=== PATIENT | male | born 1980 | race African-American/Black ===

== ENCOUNTER 2023-05-16 09:18 | Outpatient (OUT) | payer MEDICAID, SELFPAY ==
[2023-05-16 10:01] LABS: Basophils Percent Auto 0.5 % (0.2-2.0); Eosinophils Absolute Auto 0.1 10^3/uL (0.0-0.7); Eosinophils Percent Auto 2.3 % (0.9-7.0); Hematocrit 41.7 % (42.0-54.0); Hemoglobin 13.2 g/dL (14.0-18.0); Immature Granulocytes Abs Auto 0.03 10^3/uL (0.00-0.03); Immature Granulocytes Pct Auto 0.5 % (0.0-0.5); Lymphocytes Absolute Auto 2.2 10^3/uL (1.2-3.8); Lymphocytes Percent Auto 35.7 % (20.5-60.0); Mean Corpuscular HGB Conc 31.7 g/dL (29.9-35.2); Mean Corpuscular Hemoglobin 26.8 pg (25.9-34.0); Mean Corpuscular Volume 84.6 fL (80.0-94.0); Mean Platelet Volume 9.4 fL (9.5-13.5); Monocytes Absolute Auto 0.4 10^3/uL (0.3-0.8); Monocytes Percent Auto 6.6 % (1.7-12.0); Neutrophils Absolute Auto 3.4 10^3/uL (1.4-6.5); Neutrophils Percent Auto 54.4 % (43.0-75.0); Platelet Count 339 10^3/uL (150-450); Red Blood Count 4.93 10^6/uL (4.70-6.10); Red Cell Distribution Width 13.2 % (11.0-15.0); White Blood Count 6.2 10^3/uL (4.0-11.0)
[2023-05-16 10:41] LABS: Alanine Aminotransferase 18 U/L (16-63); Aspartate Amino Transferase 10 U/L (15-37)
== END 2023-05-16 09:19 | disposition home or self-care (01) ==
LOC: LAB 09:24
DX: B35.1 Tinea unguium (principal)
CPT/HCPCS: 36415; 84450; 84460; 85025

== ENCOUNTER 2023-12-14 08:45 | Outpatient (OUT) | payer OTHER, SELFPAY ==
[2023-12-14 09:03] LABS: Basophils Percent Auto 0.6 % (0.2-2.0); Eosinophils Absolute Auto 0.1 10^3/uL (0.0-0.7); Eosinophils Percent Auto 1.1 % (0.9-7.0); Hematocrit 43.1 % (42.0-54.0); Hemoglobin 13.9 g/dL (14.0-18.0); Immature Granulocytes Abs Auto 0.02 10^3/uL (0.00-0.03); Immature Granulocytes Pct Auto 0.3 % (0.0-0.5); Lymphocytes Absolute Auto 1.9 10^3/uL (1.2-3.8); Lymphocytes Percent Auto 27.4 % (20.5-60.0); Mean Corpuscular HGB Conc 32.3 g/dL (29.9-35.2); Mean Corpuscular Hemoglobin 27.2 pg (25.9-34.0); Mean Corpuscular Volume 84.3 fL (80.0-94.0); Monocytes Absolute Auto 0.6 10^3/uL (0.3-0.8); Monocytes Percent Auto 8.7 % (1.7-12.0); Neutrophils Absolute Auto 4.3 10^3/uL (1.4-6.5); Neutrophils Percent Auto 61.9 % (43.0-75.0); Platelet Count 308 10^3/uL (150-450); Red Blood Count 5.11 10^6/uL (4.70-6.10)
[2023-12-14 09:55] LABS: Estimated Average Glucose 103 mg/dL; Glycohemoglobin A1C 5.2 % (4.5-6.2)
[2023-12-14 10:10] LABS: Alanine Aminotransferase 33 U/L (16-63); Albumin Level 3.9 g/dL (3.4-5.0); Alkaline Phosphatase 61 U/L (46-116); Anion Gap 12.9; Aspartate Amino Transferase 19 U/L (15-37); BUN Creatinine Ratio 11.3; Bilirubin Total 1.3 mg/dL (0.2-1.0); Calcium 9.1 mg/dL (8.5-10.1); Carbon Dioxide 26.4 mmol/L (21.0-32.0); Chloride 104 mmol/L (98-107); Chol HDL Ratio 2.6; Cholesterol 216 mg/dL (<=200); Estimated GFR (African America >60 (>=60 mL/min/1.73m^2); Estimated GFR (Non-African Ame >60 (>=60 mL/min/1.73m^2); Free T3 3.31 pg/mL (2.18-3.98); Globulin 3.8 g/dL; Glucose 108 mg/dL (74-106); HDL Cholesterol 84 mg/dL (40-60); Potassium 4.3 mmol/L (3.5-5.1); Sodium 139 mmol/L (136-145); Thyroid Stimulating Hormone 0.901 uIU/mL (0.358-3.740); Total Protein 7.7 g/dL (6.4-8.2); Triglycerides 132 mg/dL (<=150); Uric Acid 6.2 mg/dL (3.5-7.2); VLDL CHOLESTEROL 26.4 mg/dL
[2023-12-14 10:21] LABS: Prostate Specific Antigen Scrn 0.67 ng/mL (<=4.00)
[2023-12-14 16:20] LABS: Internal Control Within Normal Limits; Occult Blood Negative
[2023-12-15 09:12] LABS: Insulin 10.3 uIU/mL (2.6-24.9)
== END 2023-12-14 08:46 | disposition home or self-care (01) ==
LOC: LAB 08:47
PROVIDERS: PCP Nurse Practitioner Family; Visit Provider Nurse Practitioner Family
DX: Z00.00 Encounter for general adult medical examination without abnormal findings (principal)
CPT/HCPCS: 36415; 80053; 80061; 83036; 83525; 84436; 84443; 84481; 84550; 85025; G0103; G0328

== ENCOUNTER 2024-10-16 21:03 | Emergency (ER) | payer OTHER, SELFPAY ==
[2024-10-16 21:08] VITALS: BP 134/76; PULSE 88; TEMP 37.2; O2SAT 99; BMI 23.0
--- OUTSIDE RECORDS SUMMARY | 2024-10-16 21:09 | XMS_ITS | CCD ---
Author Organization [facility] Care Team Providers Care Lunch Truck Operator Name Role Phone Unavailable Primary Care Provider UnavailGALE Bowers Attending Unavailable SELF Referring Unavailable SELF Referring Unavailable RAMSEY GLEASON Primary Care Physician [phone] RAMSEY GLAESON Attending Unavailable RAMSEY GLEASON Attending Unavailable RAMSEY GLEASON Admitting Unavailable Allergies Allergy Classification Reported Allergen(s) Allergy Type Date of Onset Reaction(s) Facility (1 source) No Known Medication Allergies; Translations: [No Known Medication Allergies] Propensity to adverse reactions (disorder) [facility] Repository Medications Current Medications Medication Drug Class(es) Dates Sig (Normalized) Sig (Original) 24 hr buPROPion hydrochloride 150 mg extended release oral tablet (1 source) Aminoketone Start: 12-15-2023 doxycycline monohydrate 100 mg oral capsule (1 source) Tetracycline-class Drug Start: 04-24-2024 doxycycline monohydrate 100 mg oral capsule 14 EA, 0 Refill(s), TAKE ONE CAPSULE BY MOUTH TWICE A DAY FOR 7 DAYS, Refills(s) 0 Start Date: 04/24/24 Status: Ordered Completed/Discontinued Medications Medication Drug Class(es) Dates Sig (Normalized) Sig (Original) meloxicam 7.5 mg oral tablet (2 sources) Nonsteroidal Anti-inflammatory Drug Start: 04-24-2024 meloxicam 7.5 mg Tab 30 EA, 0 Refill(s), TAKE 1 TABLET BY MOUTH ONCE DAILY., Refills(s) 0 Start Date: 04/24/24 Status: Ordered Start: 04-04-2024 take 1 tablet by scot th once daily meloxicam (MOBIC) 7.5 mg tablet Take 1 tablet by mouth once daily. 30 tablet 04/04/2024 Active Problems Problem Classification Problem Date Documented Da te Episodic/Chronic Other connective tissue disease (1 source) Tendonitis of left wrist; Translations: [Other enthesopathies, not elsewhere classified] 04-04-2024 Episodic Residual codes; unclassified (2 sources) Pain; Translations: [Pain, unspecified] 04-04-2024 Episodic Residual codes; unclassified (1 source) Pain, unspecified; Translations: [Pain] Onset: 04-04-2024 Episodic Residual codes; unclassified (1 source) Tobacco user 04-24-2024 Episodic Results Test Name Value Interpretation Reference Range Facility Reminderson 05-17-2024 Reminders Reminders - From: Lilliam Wiley LPN To: Jony - Clinical; Sent: 12/16/2023 14:28:39 EDT Show up: 05/11/2024 07:00:00 EDT Subject: colonoscopy recall Due Date/Time: 05/31/2024 07:00:00 EDT Reminder/Recall Patient due for screening colonoscopy 05/2024. (referral received 11/2023) - From: Lilliam Wiley LPN (N - Clinical) To: - Drafting Supervisor; Sent: 05/11/2024 09:13:56 EDT Show up: 05/11/2024 09:13:00 EDT Subject: RE: colonoscopy recall Left voice mail message to call to schedule consultation. Per notes, patient will call after his birthday in May and will schedule then. mxs Normal [facility] Chlamydia/Gonococcus, NAAon 04-27-2024 C. trachomatis rRNA LEO+probe Ql (Unsp spec) Negative Invalid Interpretation Code Negative [facility] Comment on above: Performed By: #### 1 [id number] #### [facility] [address] [place] [address] N. gonorrhoeae rRNA LEO+probe Ql (Unsp spec) Negative Invalid Interpretation Code Negative [facility] Comment on above: Result Comment: Perf ormed at: =[facility] [id number] MD Srini Key Performed By: #### 1 [id number] #### [facility] [address] [place] [address] HSV I and II IgGon HSV 1 IgG IA Ql Non-Reactive Invalid Interpretation Code Non Reactive [facility] Comment on above: Result Comment: Pl ease note reference interval change HSV-1 IgG testing performed using the [employer] HSV-1 IgG assay. Performed By: #### 1 [id number] #### [facility] [address] [place] [address] HSV 2 IgG IA Ql Reactive Abnormal Non Reactive [facility] Comment on above: Result Comment: Pl ease note reference interval change Current guidelines and recommendations do not recommend routine screening for HSV-2 in asymptomatic individuals, including those that are . The detection of HSV-2 IgG antibodies in a single sample indicates previous exposure to HSV-2 but does not give information as to the site of HSV infection or the timing of exposure. The predictive value of positive and negative results depends on the population's prevalence and the pretest likelihood of HSV-2. HSV-2 IgG testing performed using the [employer] Elecs[employer] HSV-2 IgG assay. Performed at: [facility] [id number] PhD Luigi Richards Performed By: #### 1 [id number] #### [facility] [address] [place] [address] Family Medicine Office/Clini c Noteon 04-24-2024 Family Medicine Office/Clinic Note Family Medicine Office/Clinic Note Chief Complaint patient in for [facility] wellness to establish care and would also like to have STI screening The patient presents for a general wellness checkup and request for STD screening. History of Present Illness 43-year-old male presenting to establish care with this provider scheduled adult wellness visit and requests STD screening due to ongoing sexual activity and absence of recent screening. He maintains an essentially monogamous relationship for 13 months, reports no STI symptoms, but expresses concern over prior possible exposure. He references a chiropractic neurologist's advice on a partner???s past chlamydial traces, although ascertains that he remains asymptomatic. Encounter with [facility] led to his last prescription without STI assessments. The patient reports a blister incident without a pattern of recurrence. He plans to undergo pertinent urine and blood work screenings for STIs, including chlamydia, and gonorrhea. Prior medical history includes the use of anti-inflammatory medication, likely meloxicam, for wrist inflammation, continuing presently without adjustment. Review of Systems PHQ Score Initial Depression Screen Score: 0 SCORE - Genitourinary: Denies current symptoms of sexually transmitted infections. - Integumentary: Reports past occurrence of blister, no current lesions. Physical Exam Vitals & Measurements T: 37.1 ???C(Temporal Artery) HR: 78(Peripheral) RR: 20 BP: 128/84 HT: 71 in HT: 180.2 cm WT: 72.8 kg WT: 160.496 lb BMI: 22.42 General: alert, no acute distress Skin: warm, dry Head: no trauma, normocephalic Neck: Trachea midline, no adenopathy, no tenderness Eye: normal conjunctiva, sclera clear ENMT: TM's clear, oral mucosa moist, no pharyngeal erythema or exudate Cardiovascular: regular rate and rhythm, normal peripheral perfusion Respiratory: Lungs CTA, respirations non labored Chest wall: no deformity. Gastrointestinal: soft, non distended, no tenderness, no guarding. Back: No tenderness, Normal ROM, Normal alignment. Extremities: no deformity, no trauma Neurological: oriented x 4, LOC appropriate for age, CN II-XII intact, motor strength equal & normal bilaterally, sensation equal & normal bilaterally, speech normal Psychiatric: cooperative, affect appropriate for age, normal judgement, normal psychiatric thoughts. Assessment/Plan 1. Adult wellness visit (Z00.00: Encounter for general adult medical examination without abnormal findings) The patient initiated this visit for routine health maintenance. Ongoing optimal wellness strategies are advised without adjustment, as no negative findings are apparent. 2. STD (male) (A64: Unspecified sexually transmitted disease) Diagnostic testing for STDs, including chlamydia, gonorrhea, herpes, and herpes is planned. Information sharing targeted towards STD prevention and symptoms awareness is crucial. Follow-up to discuss lab results is essential. Awaiting laboratory test results Ordered: Chlamydia/Gonococcus , LEO HSV I and II IgG 3. Encounter to establish care with new provider (Z76.89: Persons encountering health services in other specified circumstances) The patient integrates care following his move, promoting continuity of healthcare provisions. Examining previous management aids prospective planning for health maintenance and diagnostic monitoring. Follow-up With When Contact Information RAMSEY GLEASON CNP, FAM Within 1 year [address] [place] [address] Business (1) Additional Instructions: Well adult Patient Education Health Maintenance, Male Problem List/Past Medical History Ongoing No qualifying data Historical No qualifying data Medications doxycycline monohydrate 100 mg oral capsule meloxicam 7.5 mg Tab Wellbutrin XL 150 mg/24 hours Tab-ER Allergies No Known Allergies No Known Medication Allergies Social History Alcohol Current. Beer. 1-2 times per week., 04/24/2024 Substance Abuse Never., 04/24/2024 Tobacco 5-9 cigarettes (between 1/4 to 1/2 pack)/day in last 30 days Tobacco Use:., 04/24/2024 Family History Diabetes mellitus type 2: Mother and Grandparent. Immunizations Vaccine Date Status Comments influenza virus vaccine, inactivated - Not Given Patient Refuses Normal [facility] Comment on above: Result Comment: Elec tronically Signed By: RAMSEY GLEASON CNP\.br\Date and Time Signed: 04/24/24 09:02 EST Prashant 04-04-2024 CNOV Office Visit (LOORRM) IVYKEATON ([id number]) 1980 M Date Time Provider Department 04/04/24 10:00 AM GALE RAM LOORRM During your visit today, we recorded the following information about you: Gale Ram DO 04/04/2024 8:25 PM Signed Keaton Ivy is a patient of No primary care provider on file.. CHIEF COMPLAINT: Keaton Ivy is a 43 year old male who presents today for new evaluation ofleft wrist pain. HISTORY OF PRESENT ILLNESS: PAIN EVALUATION 04/04/2024 0923 Pain Level: 2 Pain Location: Wrist-Left Description: Numbness;Tingling Duration Amount of Time: 2 Duration Units: Months Frequency: Continuous Injury: about 2 months ago, jammed his wrist Mechanical Symptoms: No, patient denies locking, popping, or catching He localizes pain to the ulnar wrist. He notes that this problem exhibits aggravating factors of certain motions, activities. He notes that this problem exhibits alleviating factors of Rest and avoidance of aggravating activities. PHYSICAL EXAMINATION: HANDANDWRIST EXAM Inspection: No joint deformities or swelling noted on examination today Range of Motion: Finger: normal ROM of all joints of all fingers of both hands Wrist Flexion: normal ROM when compared to the contralateral side Wist Extension: normal ROM when compared to the contralateral side Muscle Strength: Wrist extension (C6): 5/5 Wrist flexion (C7): 5/5 TTP over the ulnar wrist, ECU No ECU subluxation or weakness IMAGING: Final results and radiologist's interpretation, available in the [facility] health record. Images were reviewed with the patient/family members in the office today. My personal interpretation of the performed imaging is no acute abnormality. CLINICAL IMPRESSION / ASSESSMENT: (M77.8) Left wrist tendinitis (primary encounter diagnosis) RECOMMENDATION / PLAN: Discussed the risk and benefits of general NSAIDs, as well as side effect profile, and will begin trial of Mobic. We will continue to monitor the need for further usage, and/or need for discontinuation. Activities as tolerated Compression, icing as needed Follow-up as needed Procedures Verbal health education was given to patient. Patient verbalizes understanding and agrees with the treatment plan as detailed above. Gale Ram DO Referring Provider: SELF [200] Allergies As of Date: 04/04/2024 (Not on File) Date Reviewed: 04/04/2024 Reviewed by: Gale Ram DO - Fully Assessed Reason for Visit: New [640924] Wrist Pain [1580] Primary Visit Diagnosis:Left wrist tendinitis [M77.8] Order(s):meloxicam (MOBIC) 7.5 mg tabletTake 1 tablet by mouth once daily.Disp: 30 tabletRfl: 0 Prescriptions as of 04/04/2024 - meloxicam (MOBIC) 7.5 mg tablet Take 1 tablet by mouth once daily. Problem List As Of Date: 04/04/2024 (None) Prescriptions ordered this encounter Disp Refills Start End MELOXICAM 7.5 MG TABLET 30 t* 0 04/04/2024 Route: ORAL Sig: Take 1 tablet by mouth once daily. Encounter Status:Closed by GALE RAM on 04/04/24 Normal [facility] XR WRIST 3V PA/LAT/OBL LTon 04-04-2024 XR WRIST 3V PA/LAT/OBL LT * * *Final Report* * * DATE OF EXAM: Apr 04 2024 9:13AM LZX 5270 - XR WRIST 3V PA/LAT/OBL LT / PROCEDURE REASON: Pain * * * * Physician Interpretation * * * * EXAMINATION: XR WRIST 3V PA/LAT/OBL LT HISTORY: pain lt wrist Pain . TECHNIQUE: XR WRIST 3V PA/LAT/OBL LT Laterality: LEFT Number of different views (projections): 3 M: XB_1 COMPARISON: RESULT: Moderate triscaphe degenerative changes. Carpal rows appear otherwise maintained. No acute fracture or dislocation. There are no bony erosions. IMPRESSION: Moderate triscaphe degenerative change. Bottom Liquor Attendant: KAY Transcribe Date/Time: Apr 04 2024 10:01A Dictated by : KOKO PAT MD This examination was interpreted and the report reviewed and electronically signed by: KOKO PAT MD on Apr 04 2024 10:01AM EST [id number] Normal [facility] XR Wrist - left PA and Later al and Obliqueon 04-04-2024 IMPRESSION: Moderate triscaphe degenerative change. Bottom Liquor Attendant: KAY Transcribe Date/Time: Apr 04 2024 10:01A Dictated by : KOKO PAT MD This examination was interpreted and the report reviewed and electronically signed by: KOKO PAT MD on Apr 04 2024 10:01AM EST DIVISION OF RADIOLOGY * * *Final Report* * * DATE OF EXAM: Apr 04 2024 9:13AM LZX 5270 - XR WRIST 3V PA/LAT/OBL LT / PROCEDURE REASON: Pain * * * * Physician Interpretation * * * * EXAMINATION: XR WRIST 3V PA/LAT/OBL LT HISTORY: pain lt wrist Pain . TECHNIQUE: XR WRIST 3V PA/LAT/OBL LT Laterality: LEFT Number of different views (projections): 3 M: XB_1 COMPARISON: RESULT: Moderate triscaphe degenerative changes. Carpal rows appear otherwise maintained. No acute fracture or dislocation. There are no bony erosions. DIVISION OF RADIOLOGY Provider, [facility] [place] - 04/04/2024 * * *Final Report* * * DATE OF EXAM: Apr 04 2024 9:13AM LZX 5270 - XR WRIST 3V PA/LAT/OBL LT / PROCEDURE REASON: Pain * * * * Physician Interpretation * * * * EXAMINATION: XR WRIST 3V PA/LAT/OBL LT HISTORY: pain lt wrist Pain . TECHNIQUE: XR WRIST 3V PA/LAT/OBL LT Laterality: LEFT Number of different views (projections): 3 M: XB_1 COMPARISON: RESULT: Moderate triscaphe degenerative changes. Carpal rows appear otherwise maintained. No acute fracture or dislocation. There are no bony erosions. IMPRESSION IMPRESSION: Moderate triscaphe degenerative change. Bottom Liquor Attendant[facility] Transcribe Date/Time: Apr 04 2024 10:01A Dictated by : KOKO PAT MD This examination was interpreted and the report reviewed and electronically signed by: KOKO PAT MD on Apr 04 2024 10:01AM EST [facility] Radiology Study observation (narrative) [facility] XR Wrist - left PA and Later al and ObliqueOrdered By: Ccf Provider on 04-04-2024 [facility] Encounters Encounter Date Encounter Type Care Provider Facility Start: 04-24-2024 End: 04-24-2024 Lab Drop off RAMSEY GLEASON [facility] Start: 04-24-2024 End: 04-24-2024 ambulatory RAMSEY GLEASON Facility[facility] Start: 04-23-2024 ambulatory RAMSEY GLEASON Facility :[facility] Jose Ramon Start: 04-04-2024 End: 04-04-2024 Patient encounter procedure Consuelo Vincent RT(R) Radiology Comment on above: Left wrist tendiniti s (Primary Dx) Start: 04-04-2024 End: 04-04-2024 ambulatory Consuelo Vincent RT(R) Radiology Comment on above: Radiology XR Start: 04-04-2024 End: 04-04-2024 Subsequent hospital visit by physician Kristina Torres 1 Work Phone: Radiology Comment on above: Pain [R52] Start: 12-16-2023 ambulatory RAMSEY GELASON Facility :[facility] Procedures Date Procedure Procedure Detail Performing Clinician Start: 04-04-2024 Radex wrist complete minimum 3 views Gale Espinozael DO Work Phone: Plan of Treatment Date Care Activity Detail Author Start: 10-23-2023 Covid-19 Vaccine ( season) Covid-19 Vaccine ( season) [facility] Start: 10-23-2023 Influenza vaccination Influenza Vacc ine (#1) [facility] Start: 05-31-2014 Lipid panel Lipid Screening [facility] Start: 05-31-1998 Hepatitis B Vaccine (1 of 3 - 19+ 3-dose series) Hepatitis B Vaccine (1 of 3 - 19+ 3-dose series) [facility] Start: 05-31-1998 Urine microalbumin profile DTa P,Tdap,Td Vaccine (1 - Tdap) [facility] Start: 05-31-1997 Anxiety Screening Anxiety Screening [facility] Start: 05-31-1997 Depression Screening Depression Scre ening [facility] Start: 05-31-1997 Hepatitis C screening Hepatitis C Sc reening [facility] Start: 05-31-1997 HIV screening HIV Screening [facility] Immunizations Immunization Date Immunization Notes Care Provider Fa cility NEGATED: Highlighted row has not occurred!04-24-2024 influenza virus vaccine, unspecified formulation RAMSEY GLEASON [facility] [place] Payers Date Payer Category Payer Private Health Insurance [facility] [employer] [id number] 2024 Unknown [id number] 1980 Unknown [id number] 1980 Unknown [id number] Social History Date Type Detail Facility [facility] consumption unknown [facility] Start: 04-04-2024 History of Social function [facility] Start: 04-04-2024 Area Deprivation Index [facility] National Score (1-10 0), lower number is lower risk 78 [facility] Start: 1980 Sex assigned at Not on file [facility] Start: 04-24-2024 Tobacco smoking status Light t obacco smoker (finding) [facility] [place] Clinical Notes 04-04-2024 to 04-24-2024 Gale Ram D, DO - 04/04/2024 9:25 AM Consuelo Snell, RT(R) - 04/04/2024 9:11 AM EST Note Date & Type Note Facility 04-24-2024 Evaluation + Plan note Diagnostic Tests PendingHSV I and II IgG 04/24/24Chlamydia/Gonococcus, LEO 04/24/24 [facility] 04-24-2024 Note Patient Education Urology Health Maintenance, Male Adopting a healthy lifestyle and getting preventive care are important in promoting health and wellness. Ask your health care provider about: ??? The right schedule for you to have regular tests and exams. ??? Things you can do on your own to prevent diseases and keep yourself healthy. What should I know about diet, weight, and exercise? Eat a healthy diet ??? Eat a diet that includes plenty of vegetables, fruits, low-fat dairy products, and lean protein. ??? Do not eat a lot of foods that are high in solid fats, added sugars, or sodium. Maintain a healthy weight Body mass index (BMI) is a measurement that can be used to identify possible weight problems. It estimates body fat based on height and weight. Your health care provider can help determine your BMI and help you achieve or maintain a healthy weight. Get regular exercise Get regular exercise. This is one of the most important things you can do for your health. Most adults should: ??? Exercise for at least 150 minutes each week. The exercise should increase your heart rate and make you sweat (moderate-intensity exercise). ??? Do strengthening exercises at least twice a week. This is in addition to the moderate-intensity exercise. ??? Spend less time sitting. Even light physical activity can be beneficial. Watch cholesterol and blood lipids Have your blood tested for lipids and cholesterol at 20 years of age, then have this test every 5 years. You may need to have your cholesterol levels checked more often if: ??? Your lipid or cholesterol levels are high. ??? You are older than 40 years of age. ??? You are at high risk for heart disease. What should I know about cancer screening? Many types of cancers can be detected early and may often be prevented. Depending on your health history and family history, you may need to have cancer screening at various ages. This may include screening for: ??? Colorectal cancer. ??? Prostate cancer. ??? Skin cancer. ??? Lung cancer. What should I know about heart disease, diabetes, and high blood pressure? Blood pressure and heart disease ??? High blood pressure causes heart disease and increases the risk of stroke. This is more likely to develop in people who have high blood pressure readings or are overweight. ??? Talk with your health care provider about your target blood pressure readings. ??? Have your blood pressure checked: ? Every 3?5 years if you are 18?39 years of age. ? Every year if you are 40 years old or older. ??? If you are between the ages of 65 and 75 and are a current or former smoker, ask your health care provider if you should have a one-time screening for abdominal aortic aneurysm (AAA). Diabetes Have regular diabetes screenings. This checks your fasting blood sugar level. Have the screening done: ??? Once every three years after age 45 if you are at a normal weight and have a low risk for diabetes. ??? More often and at a younger age if you are overweight or have a high risk for diabetes. What should I know about preventing infection? Hepatitis B If you have a higher risk for hepatitis B, you should be screened for this virus. Talk with your health care provider to find out if you are at risk for hepatitis B infection. Hepatitis C Blood testing is recommended for: ??? Everyone born from 1945 through 1965. ??? Anyone with known risk factors for hepatitis C. Sexually transmitted infections (STIs) ??? You should be screened each year for STIs, including gonorrhea and chlamydia, if: ? You are sexually active and are younger than 24 years of age. ? You are older than 24 years of age and your health care provider tells you that you are at risk for this type of infection. ? Your sexual activity has changed since you were last screened, and you are at increased risk for chlamydia or gonorrhea. Ask your health care provider if you are at risk. ??? Ask your health care provider about whether you are at high risk for HIV. Your health care provider may recommend a prescription medicine to help prevent HIV infection. If you choose to take medicine to prevent HIV, you should first get tested for HIV. You should then be tested every 3 months for as long as you are taking the medicine. Follow these instructions at home: Alcohol use ??? Do not drink alcohol if your health care provider tells you not to drink. ??? If you drink alcohol: ? Limit how much you have to 0-2 drinks a day. ? Know how much alcohol is in your drink. In the [place] one drink equals one 12 oz bottle of beer (355 mL), one 5 oz glass of wine (148 mL), or one 1? oz glass of hard liquor (44 mL). Lifestyle ??? Do not use any products that contain nicotine or tobacco. These products include cigarettes, chewing tobacco, and vaping devices, such as e-cigarettes. If you need help quitting, ask your health care provider. ??? Do not use street shabnam (more content not included)... [facility] 04-04-2024 Note HNO ID: [id number] Author: GALE RAM, DO Service: ? Author Type: Physician Type: Progress Notes Filed: 04/04/2024 20:25 Note Text: Keaton Ivy is a patient of No primary care provider on file.. CHIEF COMPLAINT: Keaton Ivy is a 43 year old male who presents today for new evaluation ofleft wrist pain. HISTORY OF PRESENT ILLNESS: PAIN EVALUATION 04/04/2024922 Pain Level: 2 Pain Location: Wrist-Left Description: Numbness;Tingling Duration Amount of Time: 2 Duration Units: Months Frequency: Continuous Injury: about 2 months ago, jammed his wrist Mechanical Symptoms: No, patient denies locking, popping, or catching He localizes pain to the ulnar wrist. He notes that this problem exhibits aggravating factors of certain motions, activities. He notes that this problem exhibits alleviating factors of Rest and avoidance of aggravating activities. PHYSICAL EXAMINATION: HANDANDWRIST EXAM Inspection: No joint deformities or swelling noted on examination today Range of Motion: Finger: normal ROM of all joints of all fingers of both hands Wrist Flexion: normal ROM when compared to the contralateral side Wist Extension: normal ROM when compared to the contralateral side Muscle Strength: Wrist extension (C6): 5/5 Wrist flexion (C7): 5/5 TTP over the ulnar wrist, ECU No ECU subluxation or weakness IMAGING: Final results and radiologist's interpretation, available in the [facility] health record. Images were reviewed with the patient/family members in the office today. My personal interpretation of the performed imaging is no acute abnormality. CLINICAL IMPRESSION / ASSESSMENT: (M77.8) Left wrist tendinitis (primary encounter diagnosis) RECOMMENDATION / PLAN: Discussed the risk and benefits of general NSAIDs, as well as side effect profile, and will begin trial of Mobic. We will continue to monitor the need for further usage, and/or need for discontinuation. Activities as tolerated Compression, icing as needed Follow-up as needed Procedures Verbal health education was given to patient. Patient verbalizes understanding and agrees with the treatment plan as detailed above. Gale Ram DO [facility] 04-04-2024 History of Present illness Narrative Keaton Ivy is a patient of No primary care provider on file.. CHIEF COMPLAINT: Keaton Ivy is a 43 year old male who presents today for new evaluation ofleft wrist pain. HISTORY OF PRESENT ILLNESS: PAIN EVALUATION 04/04/2024922 Pain Level: 2 Pain Location: Wrist-Left Description: Numbness;Tingling Duration Amount of Time: 2 Duration Units: Months Frequency: Continuous Injury: about 2 months ago, jammed his wrist Mechanical Symptoms: No, patient denies locking, popping, or catching He localizes pain to the ulnar wrist. He notes that this problem exhibits aggravating factors of certain motions, activities. He notes that this problem exhibits alleviating factors of Rest and avoidance of aggravating activities. PHYSICAL EXAMINATION: HAND&WRIST EXAM Inspection: No joint deformities or swelling noted on examination today Range of Motion: Finger: normal ROM of all joints of all fingers of both hands Wrist Flexion: normal ROM when compared to the contralateral side Wist Extension: normal ROM when compared to the contralateral side Muscle Strength: Wrist extension (C6): 5/5 Wrist flexion (C7): 5/5 TTP over the ulnar wrist, ECU No ECU subluxation or weakness IMAGING: Final results and radiologist's interpretation, available in the [facility] health record. Images were reviewed with the patient/family members in the office today. My personal interpretation of the performed imaging is no acute abnormality. CLINICAL IMPRESSION / ASSESSMENT: (M77.8) Left wrist tendinitis (primary encounter diagnosis) RECOMMENDATION / PLAN: Discussed the risk and benefits of general NSAIDs, as well as side effect profile, and will begin trial of Mobic. We will continue to monitor the need for further usage, and/or need for discontinuation. Activities as tolerated Compression, icing as needed Follow-up as needed Procedures Verbal health education was given to patient. Patient verbalizes understanding and agrees with the treatment plan as detailed above. Gale Ram DO documented in this encounter [facility] 04-04-2024 Note HNO ID: [id number] Author: CONSUELO VINCENT RT(R) Service: ? Author Type: Technologist Type: Progress Notes Filed: 04/04/2024 09:11 Note Text: Radiology Service Progress Note PATIENT NAME: Keaton Ivy DATE OF SERVICE: April 04, 2024 TIME: 9:11 AM PATIENT IDENTITY VERIFICATION COMPLETED USING TWO (2) IDENTIFIERS: Name and Date of confirmed by patient verbally. FALL SCREENING: Has the patient had 2 falls in the last year or 1 fall with injury or currently using an Ambulatory Assistive Device (Walker, Cane, Wheelchair, Crutches, etc.)? No PATIENT GENDER DATA: Assigned male at PATIENT RELEVANT IMPLANT DATA REVIEWED: Not Applicable PATIENT PRESENTS WITH AN IMPLANTABLE OR ATTACHED MANAGER TRAINING AND DEVELOPMENT: No RADIOLOGY DEPARTMENT: General X-ray: Exam(s) Completed: Upper Extremity X-Ray(s): Wrist, left PERIPHERAL IV DATA: Not applicable SIGNED BY: RT Kedar(R) April 04, 2024 9:11 AM [facility] 04-04-2024 History of Present illness Narrative Radiology Service Progress Note PATIENT NAME: Keaton Ivy DATE OF SERVICE: April 04, 2024 TIME: 9:11 AM PATIENT IDENTITY VERIFICATION COMPLETED USING TWO (2) IDENTIFIERS: Name and Date of confirmed by patient verbally. FALL SCREENING: Has the patient had 2 falls in the last year or 1 fall with injury or currently using an Ambulatory Assistive Device (Walker, Cane, Wheelchair, Crutches, etc.)? No PATIENT GENDER DATA: Assigned male at PATIENT RELEVANT IMPLANT DATA REVIEWED: Not Applicable PATIENT PRESENTS WITH AN IMPLANTABLE OR ATTACHED MANAGER TRAINING AND DEVELOPMENT: No RADIOLOGY DEPARTMENT: General X-ray: Exam(s) Completed: Upper Extremity X-Ray(s): Wrist, left PERIPHERAL IV DATA: Not applicable SIGNED BY: RT Kedar(R) April 04, 2024 9:11 AM documented in this encounter [facility] Evaluation note Diagnosis Left wrist tendinitis- Primary [facility] Pain Generalized pain [facility] Narrative No data available for this section [facility] Discharge instructions No data available for this section [facility] Progress note No data available for this section [facility] Summary Purpose Family History No Family History Records Found No data available for this section No Family History Records FoundNo Family History Records FoundNo Family History Records Found Advance Directives No Advanced Directives Records FoundNo Advanced Directives Records FoundNo Advanced Directives Records FoundNo Advanced Directives Records Found Additional Source Comments Source Comments (unrecognize d section and content) In the event this informatio n is protected by the Federal Confidentiality of Alcohol and Drug Abuse Patient Records regulations: The Federal rules restrict any use of the information to criminally investigate or prosecute any alcohol or drug abuse patient.[facility] the event this information is protected by the Federal Confidentiality of Alcohol and Drug Abuse Patient Records regulations: The Federal rules restrict any use of the information to criminally investigate or prosecute any alcohol or drug abuse patient.[facility] the event this information is protected by the Federal Confidentiality of Alcohol and Drug Abuse Patient Records regulations: The Federal rules restrict any use of the information to criminally investigate or prosecute any alcohol or drug abuse patient.[facility] Reason for Visit (unrecogniz ed section and content) Reason Comments Radiology XR Reason Comments New Wrist Pain Reason Comments Radiology XR Specialty Diagnoses / Procedures Referred By Contac t Referred To Contact XR IMAGING Diagnoses Pain Procedures XR WRIST GENERAL 3V PA/LAT/OBL LEFT RADEX WRIST COMPLETE MINIMUM 3 VIEWS Gale Ram MD [address] [place] [address] Phone: tel: fax: [place] [phone] Referral ID Status Reason Start Date Expiration Date V isits Requested Visits Authorized [id number] Closed Auto-Generate d Referral 03/14/2024 04/13/2025 1 1 (unrecognized sect ion and content) No Status Records FoundNo Status Records FoundNo Status Records FoundNo Status Records Found INFORMATION SOURCE (unrecogn ized section and content) DATE CREATED AUTHOR 04/06/2024 [facility] DATE CREATED AUTHOR AUTHOR'S ORGANIZ ATION 04/28/2024 [facility] DATE CREATED AUTHOR AUTHOR'S ORGANIZ ATION 05/02/2024 [facility] DATE CREATED AUTHOR AUTHOR'S ORGANIZ ATION 05/19/2024 [facility] Patient Care team informatio n (unrecognized section and content) Personnel Name: RAMSEY GLEASON CNP Address: Address: [address] [place] [id number] FOR RECORDS PERTAINING TO PATIENTS WHO ARE OR HAVE BEEN ENROLLED IN A CHEMICAL DEPENDENCY/SUBSTANCEABUSE PROGRAM, SOME INFORMATION MAY BE OMITTED. This clinical summary was aggregated from multiple sources. Caution should be exercised in using it in the provision of clinical care. This summary normalizes information from multiple sources, and as a consequence, information in this document may materially change the coding, format and clinical context of patient data. In addition, data may be omitted in some cases. CLINICAL DECISIONS SHOULD BE BASED ON THE PRIMARY CLINICAL RECORDS. [facility] [employer] [facility]. provides no warranty or guarantee of the accuracy or completeness of information in this document.
--- NOTE | 2024-10-16 21:16 | ED.EXTPRO1 ---
HPI - Extremity Problem General Chief complaint: Extremity Problem, Nontraumatic Stated complaint: Lower Pain Time Seen by Provider: 10/16/24 21:08 Source: patient Mode of arrival: walk-in Limitations: no limitations History of Present Illness HPI Narrative: 44-year-old male presents here with chief complaint of bilateral toe pain. He wears steel toed shoes. Both nails are avulsed down and worn down at the great toes. He wants his toenails removed. I told him we do not do that in the emergency room. He is here also requesting for a work note. No sign of infection or drainage or swelling of his feet. Related Data Home Medications ?Medication ?Instructions ?Recorded ?Confirmed No Known Home Medications 10/16/24 10/16/24 Allergies Allergy/AdvReac Type Severity Reaction Status Date / Time No Known Drug Allergies Allergy Verified 10/16/24 21:08 Review of Systems ROS Status of ROS 10 or more systems reviewed and unremarkable except as noted in history and below PFSH PFSH Social History Little interest or pleasure in doing things: not at all Feeling down, depressed, or hopeless: not at all Exam Narrative Exam Narrative: All Systems are negative except as noted/marked.All systems reviewed and otherwise negative Nurses note and vital signs reviewed and patient is not hypoxic. General: The patient appears well and in no apparent distress. Patient is resting comfortably on cart. Skin: Warm, dry, no pallor noted. There is no rash noted. Head: Normocephalic, atraumatic Eye: Normal conjunctiva, no drainage, EOMI. PERRL Ears, Nose, Mouth, and Throat: oral mucosa is moist. Nares patent. Mouth without vesicles. Ear canals patent. Tm's without Erythema Cardiovascular: Regular Rate and Rhythm Respiratory: Patient is in no distress, no accessory muscle use, lungs are clear to auscultation, no wheezing, rales or rhonchi Musculoskeletal: Bilateral great toenail avulsion, the patient has no evidence of calf tenderness, no pitting edema, symmetrical pulses noted bilaterally Neurological: A&O x4, normal speech Psychiatric: Cooperative Constitutional Vital Signs, click to edit/add: Last Vital Signs Temp 98.9 F 10/16/24 21:08 Pulse 88 10/16/24 21:08 Resp 20 10/16/24 21:08 BP 134/76 10/16/24 21:08 Pulse Ox 99 10/16/24 21:08 O2 Del Method Room Air 10/16/24 21:08 Course Vital Signs Vital signs: Vital Signs Temperature 98.9 F 10/16/24 21:08 Pulse Rate 88 10/16/24 21:08 Respiratory Rate 20 10/16/24 21:08 Blood Pressure 134/76 10/16/24 21:08 Pulse Oximetry 99 10/16/24 21:08 Oxygen Delivery Method Room Air 10/16/24 21:08 Temperature 98.9 F 10/16/24 21:08 Pulse Rate 88 10/16/24 21:08 Respiratory Rate 20 10/16/24 21:08 Blood Pressure 134/76 10/16/24 21:08 Pulse Oximetry 99 10/16/24 21:08 Oxygen Delivery Method Room Air 10/16/24 21:08 MDM - Extremity (Nontraumatic) MDM Narrative Medical decision making narrative: 44-year-old male presents here with chief complaint of bilateral toe pain. He wears steel toed shoes. Both nails are avulsed down and worn down at the great toes. He wants his toenails removed. I told him we do not do that in the emergency room. He is here also requesting for a work note. No sign of infection or drainage or swelling of his feet. Patient presents with a chief complaint of needing a work note for this evening he has chronically avulsed toenails from his steel toed shoes. He is requesting toenail removal. I will refer him to podiatry. Patient agrees with plan of care no sign of infection or swelling. Discharge Plan Discharge Chief Complaint: Extremity Problem, Nontraumatic Clinical Impression: Chronic toe pain, bilateral Patient Disposition: Home, Self-Care Time of Disposition Decision: 21:15 Condition: Good Prescriptions / Home Meds: No Action No Known Home Medications Print Language: Divehi Instructions: Nail Avulsion (ED) Referrals: YASIR CARTER [Primary Care Provider, Family Practice] - 1 week Sae Garcia DPM [Physician, Podiatry] - 1 week Discharge Date/Time: 10/16/24 21:45
== END 2024-10-16 21:45 | disposition home or self-care (01) ==
PROVIDERS: Emergency Provider Emergency Medicine; PCP Nurse Practitioner Family
DX: M79.675 Pain in left toe(s) (principal); M79.674 Pain in right toe(s); G89.29 Other chronic pain
CPT/HCPCS: 99281

== ENCOUNTER 2024-10-20 22:58 | Emergency (ER) | payer OTHER, SELFPAY ==
[2024-10-20 23:00] VITALS: BP 133/84; PULSE 85; TEMP 36.6; O2SAT 100; BMI 22.3
--- OUTSIDE RECORDS SUMMARY | 2024-10-20 23:02 | XMS_ITS | CCD ---
Author Organization [facility] Care Team Providers Care Scorer Single Name Role Phone Unavailable Primary Care Provider UnavailGALE Bowers Attending Unavailable SELF Referring Unavailable SELF Referring Unavailable RAMSEY GLEASON Primary Care Physician RAMSEY GLEASON Attending Unavailable RAMSEY GLEASON Attending Unavailable RAMSEY GLEASON Admitting Unavailable Allergies Allergy Classification Reported Allergen(s) Allergy Type Date of Onset Reaction(s) Facility (1 source) No Known Medication Allergies; Translations: [No Known Medication Allergies] Propensity to adverse reactions (disorder) [facility] Repository Medications Current Medications Medication Drug [...] Wiley LPN (N - Clinical) To: - Stucco Laborer; Sent: 05/11/2024 09:13:56 EDT Show up: 05/11/2024 09:13:00 EDT Subject: RE: colonoscopy recall Left voice mail message to call to schedule consultation. Per notes, patient will call after his birthday in May and will schedule then. mxs Normal [facility] Chlamydia/Gonococcus, NAAon 04-27-2024 C. trachomatis rRNA LEO+probe Ql (Unsp spec) Negative Invalid Interpretation Code Negative [facility] Comment on above: Performed By: #### 1 [id number] #### [facility] [address] [place] [address] N. gonorrhoeae rRNA LEO+probe Ql (Unsp spec) Negative Invalid Interpretation Code Negative [facility] Comment on above: Result Comment: Perf ormed at: =G Lab[facility] Hernandez [id number] MD Srini Key Performed By: #### 1 [id number] #### [facility] [address] [place] [address] HSV I and II IgGon HSV 1 IgG IA Ql Non-Reactive Invalid Interpretation Code Non Reactive [facility] Comment on above: Result Comment: Pl ease note reference interval change HSV-1 IgG testing performed using the [employer] HSV-1 IgG assay. Performed By: #### 1 [id number] #### [facility] [address] [place] [address] HSV 2 IgG IA Ql Reactive Abnormal Non Reactive [facility] Comment on above: Result Comment: Pl [...] [employer] HSV-2 IgG assay. Performed at: [address] [id number] PhD Luigi Richards Performed By: #### 1 [id number] #### [facility] [address] [place] [address] Family Medicine Office/Clini c Noteon 04-24-2024 Family [...] over prior possible exposure. He references a dozer operator's advice on a partner???s past chlamydial traces, [...] GLEASON CNP, FAM Within 1 year [address] [place] [address] Business (1) Additional Instructions: Well [...] inactivated - Not Given Patient Refuses Normal [facility] Comment on above: Result Comment: Elec tronically Signed By: RAMSEY GLEASON CNP\.br\Date and Time Signed: 04/24/24 09:02 EST Prashant 04-04-2024 CNOV Office Visit (LOORRM) IVYKEATON ([id number]) 1980 M Date Time Provider Department 04/04/24 [...] results and radiologist's interpretation, available in the [facility] health record. Images were reviewed with the [...] - Fully Assessed Reason for Visit: New [680216] Wrist Pain [1580] Primary Visit Diagnosis:Left wrist [...] Status:Closed by GALE RAM on 04/04/24 Normal [facility] XR WRIST 3V PA/LAT/OBL LTon [...] bony erosions. IMPRESSION: Moderate triscaphe degenerative change. Farmworker Livestock: KAY Transcribe Date/Time: Apr 04 2024 10:01A Dictated by : KOKO PAT MD This examination was interpreted and the report reviewed and electronically signed by: KOKO PAT MD on Apr 04 2024 10:01AM EST [id number] CN Normal [facility] XR Wrist - left PA and Later al and Obliqueon 04-04-2024 IMPRESSION: Moderate triscaphe degenerative change. Farmworker Livestock: KAY Transcribe Date/Time: Apr 04 2024 10:01A [...] no bony erosions. DIVISION OF RADIOLOGY Provider, [facility] [place] - 04/04/2024 * * *Final Report* * [...] erosions. IMPRESSION IMPRESSION: Moderate triscaphe degenerative change. Farmworker Livestock: [facility] Transcribe Date/Time: Apr 04 2024 10:01A Dictated by : KOKO PAT MD This examination was interpreted and the report reviewed and electronically signed by: KOKO PAT MD on Apr 04 2024 10:01AM EST [facility] Radiology Study observation (narrative) [facility] XR Wrist - left PA and Later al and ObliqueOrdered By: Ccf Provider on 04-04-2024 [facility] Encounters Encounter Date Encounter Type Care Provider Facility Start: 04-24-2024 End: 04-24-2024 Lab Drop off RAMSEY GLEASON [facility] Start: 04-24-2024 End: 04-24-2024 ambulatory RAMSEY GLEASON Facility[place] Start: 04-23-2024 ambulatory RAMSEY GLEASON Facility :[facility] Jose Ramon Start: 04-04-2024 End: 04-04-2024 Patient encounter procedure Consuelo Vincetn RT(R) Radiology Comment on above: Left wrist tendiniti s (Primary Dx) Start: 04-04-2024 End: 04-04-2024 ambulatory Consuelo Vincent RT(R) Radiology Comment on above: Radiology XR Start: 04-04-2024 End: 04-04-2024 Subsequent hospital visit by physician Kristina Torres 1 Work Phone: Radiology Comment on above: Pain [R52] Start: 12-16-2023 ambulatory RAMSEY GLEASON Facility :[facility] Procedures Date Procedure Procedure Detail Performing Clinician Start: 04-04-2024 Radex wrist complete minimum 3 views Gale Espinozael DO Work Phone: Plan of Treatment Date Care Activity Detail Author Start: 10-23-2023 Covid-19 Vaccine ( season) Covid-19 Vaccine ( season) [facility] Start: 10-23-2023 Influenza vaccination Influenza Vacc ine (#1) [facility] Start: 05-31-2014 Lipid panel Lipid Screening [facility] Start: 05-31-1998 Hepatitis B Vaccine (1 of 3 - 19+ 3-dose series) Hepatitis B Vaccine (1 of 3 - 19+ 3-dose series) [facility] Start: 05-31-1998 Urine microalbumin profile DTa P,Tdap,Td Vaccine (1 - Tdap) [facility] Start: 05-31-1997 Anxiety Screening Anxiety Screening [facility] Start: 05-31-1997 Depression Screening Depression Scre ening [facility] Start: 05-31-1997 Hepatitis C screening Hepatitis C Sc reening [facility] Start: 05-31-1997 HIV screening HIV Screening [facility] Immunizations Immunization Date Immunization Notes Care Provider Fa cility NEGATED: Highlighted row has not occurred!04-24-2024 influenza virus vaccine, unspecified formulation RAMSEY GLEASON [facility] Payers Date Payer Category Payer Private Health Insurance [facility] [employer] PLUS [id number] 2024 Unknown [id number] 1980 Unknown [id number] 1980 Unknown [id number] Social History Date Type Detail [facility] Start: 04-04-2024 History of Social function [facility] Start: 04-04-2024 Area Deprivation Index [facility] National Score (1-10 0), lower number is lower risk 78 [facility] Start: 1980 Sex assigned at Not on file C [facility] Start: 04-24-2024 Tobacco smoking status Light t obacco smoker (finding) [facility] Clinical Notes 04-04-2024 to 04-24-2024 Gale Ram D, DO - 04/04/2024 9:25 AM Consuelo Snell, RT(R) - 04/04/2024 9:11 AM EST Note Date & Type Note Facility 04-24-2024 Evaluation + Plan note Diagnostic Tests PendingHSV I and II IgG 04/24/24Chlamydia/Gonococcus, LEO 04/24/24 [facility] 04-24-2024 Note Patient Education Urology Health Maintenance, [...] use street shabnam (more content not included)... [facility] 04-04-2024 Note HNO ID: [id number] Author: GALE RAM, DO Service: ? Author [...] results and radiologist's interpretation, available in the [facility] health record. Images were reviewed with the [...] plan as detailed above. Gale Ram DO [facility] 04-04-2024 History of Present illness [...] results and radiologist's interpretation, available in the [facility] health record. Images were reviewed with the [...] Gale Ram DO documented in this encounter [facility] 04-04-2024 Note HNO ID: [id number] Author: CONSUELO VINCENT RT(R) Service: ? Author [...] PATIENT PRESENTS WITH AN IMPLANTABLE OR ATTACHED U.S. SENATOR: No RADIOLOGY DEPARTMENT: General X-ray: Exam(s) Completed: Upper Extremity X-Ray(s): Wrist, left PERIPHERAL IV DATA: Not applicable SIGNED BY: RT Kedar(R) April 04, 2024 9:11 AM [facility] 04-04-2024 History of Present illness [...] PATIENT PRESENTS WITH AN IMPLANTABLE OR ATTACHED U.S. SENATOR: No RADIOLOGY DEPARTMENT: General X-ray: Exam(s) Completed: Upper Extremity X-Ray(s): Wrist, left PERIPHERAL IV DATA: Not applicable SIGNED BY: RT Kedar(R) April 04, 2024 9:11 AM documented in this encounter [facility] Evaluation note Diagnosis Left wrist tendinitis- Primary documented in this encounter [facility] Diagnosis Pain Generalized pain documented in this encounter [facility] Narrative No data available for this section [facility] Hospital Discharge instructions No data available for this section [facility] Progress note No data available for this section [facility] Summary Purpose Family History No Family History [...] or prosecute any alcohol or drug abuse patient.[facility] the event this information is protected by the Federal Confidentiality of Alcohol and Drug Abuse Patient Records regulations: The Federal rules restrict any use of the information to criminally investigate or prosecute any alcohol or drug abuse patient.[facility] the event this information is protected by the Federal Confidentiality of Alcohol and Drug Abuse Patient Records regulations: The Federal rules restrict any use of the information to criminally investigate or prosecute any alcohol or drug abuse patient.[facility] Reason for Visit (unrecogniz ed section and content) Reason Comments Radiology XR Reason Comments New Wrist Pain Reason Comments Radiology XR Specialty Diagnoses / Procedures Referred By Contac t Referred To Contact XR IMAGING Diagnoses Pain Procedures XR WRIST GENERAL 3V PA/LAT/OBL LEFT RADEX WRIST COMPLETE MINIMUM 3 VIEWS Gale Ram MD [address] [place] [address] Phone: tel: fax: [place] [address] Referral ID Status Reason Start Date Expiration Date V isits Requested Visits Authorized [id number] Closed Auto-Generate d Referral 03/14/2024 04/13/2025 1 1 (unrecognized sect ion and content) No Status Records FoundNo Status Records FoundNo Status Records FoundNo Status Records Found INFORMATION SOURCE (unrecogn ized section and content) DATE CREATED AUTHOR 04/06/2024 [facility] DATE CREATED AUTHOR AUTHOR'S ORGANIZ ATION 04/28/2024 [facility] DATE CREATED AUTHOR AUTHOR'S ORGANIZ ATION 05/02/2024 [facility] DATE CREATED AUTHOR AUTHOR'S ORGANIZ ATION 05/19/2024 [facility] Patient Care team informatio n (unrecognized section and content) Personnel Name: RAMSEY GLEASON CNP Address: Address: [address] [place] [phone] FOR RECORDS PERTAINING TO PATIENTS WHO ARE [...] BE BASED ON THE PRIMARY CLINICAL RECORDS. [employer] [facility]. provides no warranty or guarantee of the accuracy or completeness of information in this document.
--- NOTE | 2024-10-21 00:38 | ED.NECK1 ---
HPI HPI - Neck Pain/Injury General Chief Complaint: Neck Pain/Injury Stated Complaint: Neck Pain Time Seen by Provider: 10/21/24 00:24 Source: patient Mode of arrival: walk-in Limitations: no limitations History of Present Illness HPI Narrative: patient describes standing on a step ladder and then falling off. Struck his head and right neck. Also right clavicle area. Presents because of pain of his soft tissue neck. No problem swallowing. No LOC or nausea . no parathesia of his extremities Related Data Home Medications ?Medication ?Instructions ?Recorded ?Confirmed No Known Home Medications 10/16/24 10/16/24 Allergies Allergy/AdvReac Type Severity Reaction Status Date / Time No Known Drug Allergies Allergy Verified 10/20/24 23:04 Opioid HPI Opioid Management Most Recent Opioid Data: Last Pain Scale 3 10/16/24, 21:08 Review of Systems ROS Status of ROS 10 or more systems reviewed and unremarkable except as noted in history and below PFSH PFSH Social History Little interest or pleasure in doing things: not at all Feeling down, depressed, or hopeless: not at all Exam Constitutional Vital Signs, click to edit/add: Last Vital Signs Temp 97.8 F 10/20/24 23:00 Pulse 85 10/20/24 23:00 Resp 17 10/20/24 23:00 BP 133/84 10/20/24 23:00 Pulse Ox 100 10/20/24 23:00 O2 Del Method Room Air 10/20/24 23:00 Common normals: no apparent distress, average body habitus, oriented x3, no limitations, healthy appearing, alert and well nourished [facility] Common normals: normocephalic and head/scalp atraumatic Head images:  1. minor abrasion. tender. no swelling Face and sinus: normal facial exam Eye Common normals: PERRL and EOMs intact bilaterally Neck & C-Spine Common normals: full ROM (mild tenderness C-spine) Chest Common normals: inspection of chest normal and palpation of chest normal Other: minor tenderness right clavicle Respiratory Common normals: normal respiratory effort, no retractions, no use of accessory muscles and clear to auscultation bilaterally Cardio Common normals: regular rate, regular rhythm, S1 normal heart sound and S2 normal heart sound GI Common normals: Normal to inspection, nondistended, normoactive bowel sounds present, soft to palpation and non-tender Extremity Common normals: normal to inspection and full ROM Neuro Common normals: oriented x3, CN's II-XII intact bilaterally, moves all extremities and no focal motor deficits Psych Appearance: grossly normal Course Vital Signs Vital signs: Vital Signs Temperature 97.8 F 10/20/24 23:00 Pulse Rate 85 10/20/24 23:00 Respiratory Rate 17 10/20/24 23:00 Blood Pressure 133/84 10/20/24 23:00 Pulse Oximetry 100 10/20/24 23:00 Oxygen Delivery Method Room Air 10/20/24 23:00 Temperature 97.8 F 10/20/24 23:00 Pulse Rate 85 10/20/24 23:00 Respiratory Rate 17 10/20/24 23:00 Blood Pressure 133/84 10/20/24 23:00 Pulse Oximetry 100 10/20/24 23:00 Oxygen Delivery Method Room Air 10/20/24 23:00 MDM - Neck Pain/Injury MDM Narrative Medical decision making narrative: patient presented from home after he had fallen off of a step ladder in his home and struck his right side including his neck, clavicle and head. Here because of the pain of his right neck. No obvious swelling. Did have mid excoriation. Diagnostic studies ordered to included CT soft tissue neck. patient informed nursing he had changed his mind and signed out AMA Discharge Plan Discharge Stand Alone Forms: Portal Instructions Chief Complaint: Neck Pain/Injury Clinical Impression: Injury of neck Patient Disposition: Left Against Medical Advice Time of Disposition Decision: 01:10 Condition: Good Prescriptions / Home Meds: No Action No Known Home Medications Print Language: Slovenian Referrals: YASIR CARTER [Primary Care Provider, [facility]] - 1 week Discharge Date/Time: 10/21/24 01:10
== END 2024-10-21 01:10 | disposition left against medical advice (07) ==
PROVIDERS: Emergency Provider Internal Medicine; PCP Nurse Practitioner Family
DX: S19.9XXA Unspecified injury of neck, initial encounter (principal); Z53.29 Procedure and treatment not carried out because of patient's decision for other reasons; W11.XXXA Fall on and from ladder, initial encounter
CPT/HCPCS: 99281